=== PATIENT | female | born 1965 | race Two or more races ===

== ENCOUNTER 2018-02-09 09:13 | Emergency (ER) | payer SELFPAY ==
--- NOTE | 2018-02-09 09:40 | ER Document Report ---
ED Medical Screen (RME) - General Chief Complaint: Sore Throat Stated Complaint: SORE THROAT Time Seen by Provider: 02/09/18 09:37 Mode of Arrival: Ambulatory Information source: Patient TRAVEL OUTSIDE OF THE [place] IN LAST 30 DAYS: No - HPI Patient complains to provider of: dysphagia Onset: This morning - pt. sent here from with possible abscess in neck. Has painful swallowing - Related Data Allergies/Adverse Reactions: No Known Allergies Allergy (Verified 02/09/18 09:14) Physical Exam - Vital signs Vitals: Temp Pulse Resp BP Pulse Ox 99.5 F 88 18 153/89 H 98 02/09/18 09:24 02/09/18 09:24 02/09/18 09:24 02/09/18 09:24 02/09/18 09:24 Course - Vital Signs Vital signs: Temp Pulse Resp BP Pulse Ox 99.5 F 88 18 153/89 H 98 02/09/18 09:24 02/09/18 09:24 02/09/18 09:24 02/09/18 09:24 02/09/18 09:24
[2018-02-09] MEDS ORDERED: HYDROCODONE/ACETAMINOPHEN 5-325 MG TABLET PO ONE (09:42)
[2018-02-09] MEDS ORDERED: DEXAMETHASONE SOD PHOS INJ 10 MG/1 ML VIAL IV ONE (10:19)
[2018-02-09] MEDS ORDERED: AMPICILLIN SOD/SULBACTAM 3 GM VIAL IV ONE (10:20)
[2018-02-09] MEDS ORDERED: MORPHINE SULFATE 10 MG/ML INJ IV ONE ×2 (10:21→12:55)
--- NOTE | 2018-02-09 10:22 | ER Document Report ---
ED ENT - General Chief Complaint: Sore Throat Stated Complaint: SORE THROAT Time Seen by Provider: 02/09/18 09:37 Mode of Arrival: Ambulatory Information source: Patient Notes: Patient presents complaining of sore throat for the past week that worsened over the past 2 days. Patient states that her voice is muffled. Patient has been able to swallow liquids without difficulty. TRAVEL OUTSIDE OF THE [place] IN LAST 30 DAYS: No - HPI Onset: Last week Onset/Duration: Worse Pain Level: 5 Location of pain: Throat Associated symptoms: Sore throat. denies: Stiff neck Similar symptoms previously: No Recently seen / treated by doctor: No - Related Data Allergies/Adverse Reactions: No Known Allergies Allergy (Verified 02/09/18 09:40) Past Medical History - General Information source: Patient - Social History Smoking Status: Never Smoker Chew tobacco use (# tins/day): No Frequency of alcohol use: Occasional Drug Abuse: None Occupation: account resolution specialist Lives with: Spouse/Significant other Family History: Reviewed & Not Pertinent Patient has suicidal ideation: No Patient has homicidal ideation: No - Past Medical History Cardiac Medical History: Reports: Hx Hypercholesterolemia Endocrine Medical History: Reports: Hx Diabetes Mellitus Type 2 Renal/ Medical History: Denies: Hx Peritoneal Dialysis Past Surgical History: Reports: Other - Nasal surgery Review of Systems - Review of Systems Constitutional: No symptoms reported EENT: Throat pain, Throat swelling. denies: Difficulty swallowing Cardiovascular: No symptoms reported Respiratory: No symptoms reported. denies: Cough, Short of breath Gastrointestinal: No symptoms reported. denies: Nausea, Vomiting Genitourinary: No symptoms reported Female Genitourinary: No symptoms reported Musculoskeletal: No symptoms reported Skin: No symptoms reported Hematologic/Lymphatic: No symptoms reported Neurological/Psychological: No symptoms reported Physical Exam - Vital signs Vitals: Temp Pulse Resp BP Pulse Ox 99.5 F 88 18 153/89 H 98 02/09/18 09:24 02/09/18 09:24 02/09/18 09:24 02/09/18 09:24 02/09/18 09:24 - General General appearance: Appears well, Alert In distress: None - HEENT Head: Normocephalic, Atraumatic Eyes: Normal Ears: Normal External canal: Normal Nasal: Normal Mouth/Lips: Normal Mucous membranes: Normal Pharynx: Erythema, Peritonsillar abscess - right Neck: Lymphadenopathy Notes: Voice slightly muffled, patient able to manage oral secretions - Respiratory Respiratory status: No respiratory distress Chest status: Nontender Breath sounds: Normal. No: Rales, Rhonchi, Stridor, Wheezing Chest palpation: Normal - Cardiovascular Rhythm: Regular Heart sounds: S1 appreciated, S2 appreciated Murmur: No - Back Back: Normal, Nontender - Extremities General upper extremity: Normal inspection, Normal ROM General lower extremity: Normal inspection, Normal ROM - Neurological Neuro grossly intact: Yes Cognition: Normal Christiane Coma Scale Eye Opening: Spontaneous Hitchcock Coma Scale Verbal: Oriented Christiane Coma Scale Motor: Obeys Commands Hitchcock Coma Scale Total: 15 - Psychological Associated symptoms: Normal affect, Normal mood - Skin Skin Temperature: Warm Skin Moisture: Dry Skin Color: Normal Course - Re-evaluation Re-evalutation: 02/09/18 10:53 Patient states that she had a rapid strep test performed at the urgent care and it was negative and she is refusing to have this test performed here today. 02/09/18 12:03 Reviewed results of patient's CT scan. Call placed for consultation with Dr. Granger, awaiting return call. Consulted with Dr. Ortiz regarding patient's liver function tests abnormalities. Recommends outpatient follow-up with primary doctor for further evaluation. 02/09/18 12:40 Spoke with automatic beading lathe operator as we have yet to hear back from Dr. Granger, automatic beading lathe operator has paged him directly to her line. 02/09/18 12:55 Patient updated regarding results as well as pending consultation with ENT. Patient is requesting additional pain medication as well as IV fluids. 02/09/18 13:23 Straight Ruling Machine Operator is still awaiting return phone call. Patient stable at this time. 02/09/18 13:[address] Granger who advises having pt present directly to office for evaluation. - Vital Signs Vital signs: Temp Pulse Resp BP Pulse Ox 98.8 F 86 18 141/74 H 96 02/09/18 14:32 02/09/18 14:32 02/09/18 14:32 02/09/18 14:32 02/09/18 14:32 - Laboratory Result Diagrams: 02/09/18 10:00 02/09/18 10:00 Laboratory results interpreted by me: 02/09/18 02/09/18 10:00 10:00 WBC 17.5 H Hgb 11.4 L MCV 72 L MCH 22.5 L MCHC 31.4 L RDW 18.5 H Seg Neutrophils % 80.2 H Lymphocytes % 10.8 L Absolute Neutrophils 14.0 H Sodium 145.5 H Carbon Dioxide 32 H Glucose 206 H AST 84 H ALT 257 H Alkaline Phosphatase 202 H Total Protein 8.6 H Labs- Entire Visit 02/09/18 02/09/18 02/09/18 10:00 10:00 10:00 WBC 17.5 H RBC 5.07 Hgb 11.4 L Hct 36.3 MCV 72 L MCH 22.5 L MCHC 31.4 L RDW 18.5 H Plt Count 316 Seg Neutrophils % 80.2 H Lymphocytes % 10.8 L Monocytes % 6.9 Eosinophils % 1.6 Basophils % 0.5 Absolute Neutrophils 14.0 H Absolute Lymphocytes 1.9 Absolute Monocytes 1.2 Absolute Eosinophils 0.3 Absolute Basophils 0.1 Sodium 145.5 H Potassium 3.6 Chloride 102 Carbon Dioxide 32 H Anion Gap 12 BUN 14 Creatinine 0.59 Est GFR ( Amer) > 60 Est GFR (Non-Af Amer) > 60 Glucose 206 H Calcium 9.4 Total Bilirubin 0.3 Direct Bilirubin 0.3 Neonat Total Bilirubin Not Reportable Neonat Direct Bilirubin Not Reportable Neonat Indirect Bili Not Reportable AST 84 H ALT 257 H Alkaline Phosphatase 202 H Total Protein 8.6 H Albumin 4.3 Lipase Monotest NEGATIVE 02/09/18 10:00 WBC RBC Hgb Hct MCV MCH MCHC RDW Plt Count Seg Neutrophils % Lymphocytes % Monocytes % Eosinophils % Basophils % Absolute Neutrophils Absolute Lymphocytes Absolute Monocytes Absolute Eosinophils Absolute Basophils Sodium Potassium Chloride Carbon Dioxide Anion Gap BUN Creatinine Est GFR ( Amer) Est GFR (Non-Af Amer) Glucose Calcium Total Bilirubin Direct Bilirubin Neonat Total Bilirubin Neonat Direct Bilirubin Neonat Indirect Bili AST ALT Alkaline Phosphatase Total Protein Albumin Lipase 172.5 Monotest - Diagnostic Test Radiology reviewed: Reports reviewed Discharge - Discharge Clinical Impression: Peritonsillar abscess, Abnormal liver function test Condition: Stable Disposition: HOME, SELF-CARE Instructions: Nelli-Tonsillar Abscess ([facility]) Additional Instructions: Return immediately for any new or worsening symptoms Followup directly with Dr Granger in his office, he will see you today after you leave the ER. Forms: Return to Work Referrals: GIOVANA GRANGER DO [ASSOCIATE] - 02/09/18
[2018-02-09 10:30] LABS: ABSOLUTE BASOPHILS # (AUTO) 0.1 10^3/uL (0.0-0.2); ABSOLUTE EOSINOPHILS # (AUTO) 0.3 10^3/uL (0.0-0.6); ABSOLUTE LYMPHOCYTES (AUTO) 1.9 10^3/uL (0.5-4.7); ABSOLUTE MONOCYTES (AUTO) 1.2 10^3/uL (0.1-1.4); BASOPHILS % (AUTO) 0.5 % (0-2); EOSINOPHILS % (AUTO) 1.6 % (0-6); HEMATOCRIT 36.3 % (36.0-47.0); HEMOGLOBIN 11.4 g/dL (12.0-15.5); LYMPHOCYTES % (AUTO) 10.8 % (13-45); MEAN CORPUSCULAR HEMOGLOBIN 22.5 pg (27.0-33.4); MEAN CORPUSCULAR HGB CONC 31.4 g/dL (32.0-36.0); MEAN CORPUSCULAR VOLUME 72 fl (80-97); MONOCYTES % (AUTO) 6.9 % (3-13); PLATELET COUNT 316 10^3/uL (150-450); RED BLOOD COUNT 5.07 10^6/uL (3.72-5.28); RED CELL DISTRIBUTION WIDTH 18.5 % (11.5-14.0); SEGMENTED NEUTROPHILS % (AUTO) 80.2 % (42-78); TOTAL CELLS COUNTED % (AUTO) 100 %; WHITE BLOOD COUNT 17.5 10^3/uL (4.0-10.5)
[2018-02-09 10:49] LABS: ALANINE AMINOTRANSFERASE 257 U/L (9-52); ALBUMIN 4.3 g/dL (3.5-5.0); ALKALINE PHOSPHATASE 202 U/L (38-126); ANION GAP 12 (5-19); ASPARTATE AMINO TRANSFERASE 84 U/L (14-36); BILIRUBIN,DIRECT 0.3 mg/dL (0.0-0.4); BILIRUBIN,TOTAL 0.3 mg/dL (0.2-1.3); BLOOD UREA NITROGEN 14 mg/dL (7-20); CALCIUM 9.4 mg/dL (8.4-10.2); CARBON DIOXIDE 32 mmol/L (22-30); CHLORIDE 102 mmol/L (98-107); GLUCOSE 206 mg/dL (75-110); POTASSIUM 3.6 mmol/L (3.6-5.0); SODIUM 145.5 mmol/L (137-145); TOTAL PROTEIN 8.6 g/dL (6.3-8.2)
[2018-02-09] MEDS ORDERED: NORMAL SALINE 1000 ML 1,000 ML IV ONE ×2 (10:52→12:55)
--- NOTE | 2018-02-09 11:55 | RADIOLOGY REPORT (SQ) ---
EXAM DESCRIPTION: CT SOFT TISSUE NECK WITH COMPLETED DATE/TIME: 02/09/2018 11:35 am REASON FOR STUDY: dysphagia COMPARISON: None. TECHNIQUE: Post IV contrasted scanning from skull base through lung apices with review of bone, soft tissue and lung windows. Reconstructed coronal and sagittal MPR images reviewed. All images stored on PACS. All CT scanners at this facility use dose modulation, iterative reconstruction, and/or weight based d osing when appropriate to reduce radiation dose to as low as reasonably achievable (ALARA). [facility]: Dose Right [facility]: CareDose [facility]: Dose Right [facility]: Teradose 4D [facility]: ITN CONTRAST TYPE AND DOSE: contrast/concentration: Isovue 350.00 mg/ml; Total Contrast Delivered: 75.0 ml; Total Saline Delivered: 55.0 ml RENAL FUNCTION: GFR > 60. RADIATION DOSE: CT Rad equipment meets quality standard of care and radiation dose reduction techniq ues were employed. CTDIvol: 9.6 mGy. DLP: 307 mGy-cm. . LIMITATIONS: None. FINDINGS: SKULL BASE: Intact. MAJOR SALIVARY GLANDS: No solid or cystic masses. No inflammatory changes. LYMPHADENOPATHY: No adenopathy. MUCOSAL MASSES OR ASYMMETRY: Heterogeneous lesion right palatini tonsillar pillar measuring about 2.1 cm. This results in occlusion of the nasopharynx. LARYNX/CORDS: No abnormal findings. VASCULAR STRUCTURES: The major vessels are patent. LUNG APICES: Clear. BONES: Intact. THYROID: Normal size. No masses. PARANASAL SINUSES: Clear. OTHER: No other significant finding. IMPRESSION: Right palatine tonsillar abscess occluding the nasopharynx. TECHNICAL DOCUMENTATION: JOB ID: [id number] Quality ID # [id number]: Final reports with documentation of one or more dose reduction techniques (e.g., Au tomated exposure control, adjustment of the mA and/or kV according to patient size, use of iterative reconstruction technique) 2010 [employer]- All Rights Reserved Reading location - IP/workstation name: [email or web address]
[2018-02-09 12:29] LABS: LIPASE 172.5 U/L (23-300)
[2018-02-09 14:33] VITALS: BP 141/74
== END 2018-02-09 14:34 | disposition home or self-care (01) ==
LOC: ER 09:13
DX: J36 Peritonsillar abscess (principal); E11.9 Type 2 diabetes mellitus without complications; R79.89 Other specified abnormal findings of blood chemistry
CPT/HCPCS: 96376; 99284; 96361; 96375; 96365; 36415; 87070; 83690; 85025; 87077; 86308; 80053; 70491; J0295; J2270; J7030; J1100

== ENCOUNTER 2018-05-13 22:13 | Emergency (ER) | payer OTHER ==
[2018-05-14] MEDS ORDERED: TRAMADOL HCL 50 MG TABLET PO ONE (01:42)
--- NOTE | 2018-05-14 02:17 | RADIOLOGY REPORT (SQ) ---
EXAM DESCRIPTION: XR KNEE 4 OR MORE VIEWS COMPLETED DATE/TME: 05/14/2018 01:41 CLINICAL HISTORY: 52 years, Female, pain COMPARISON: None. NUMBER OF VIEWS: 4 TECHNIQUE: 4 views of the right knee LIMITATIONS: None. FINDINGS: Osteopenia. Negative for acute fracture or dislocation. Soft tissues are unremarkable IMPRESSION: No acute osseous abnormality. Osteopenia 2010 [facility] [employer]- All Rights Reserved
--- NOTE | 2018-05-14 03:45 | ER Document Report ---
ED General - General TRAVEL OUTSIDE OF THE [place] IN LAST 30 DAYS: No - General Chief Complaint: Leg Swelling Stated Complaint: RIGHT LEG SWELLING Time Seen by Provider: 05/14/18 00:50 Notes: Patient is a 52-year-old female presents with complaint of pain and swelling in her left leg for approximately a week. She says that whenever she twists or turns it or bears weight on it hurts. Is mainly in her knee and then a little bit up into her thigh. No weakness or numbness into the feet or toes. She has had previous surgery on her right knee. She said that surgery is about 30 years ago and was a scope in the knee. She denies any fevers. No infections. No other complaints at this time. No history of DVT or PE. (MELIZA IRIZARRY) - Related Data Allergies/Adverse Reactions: No Known Allergies Allergy (Verified 02/09/18 09:40) Past Medical History - Social History Smoking Status: Never Smoker Frequency of alcohol use: None Drug Abuse: None Family History: Reviewed & Not Pertinent Patient has suicidal ideation: No Patient has homicidal ideation: No - Past Medical History Cardiac Medical History: Reports: Hx Hypercholesterolemia Endocrine Medical History: Reports: Hx Diabetes Mellitus Type 2 Renal/ Medical History: Denies: Hx Peritoneal Dialysis Past Surgical History: Reports: Other - Nasal surgery Review of Systems - Review of Systems Notes: My Normal Review Basic REVIEW OF SYSTEMS: CONSTITUTIONAL : Denies fever, chills, or sweats. Denies recent illness. MUSCULOSKELETAL: Swelling to the right knee. SKIN: Denies rash or skin lesions. NEUROLOGICAL: Denies sensory or motor loss. ALL OTHER SYSTEMS REVIEWED AND NEGATIVE. (MELIZA IRIZARRY) Physical Exam - Vital signs Vitals: Temp Pulse Resp BP Pulse Ox 98.6 F 79 16 138/73 H 96 05/13/18 22:41 05/13/18 22:41 05/13/18 22:41 05/13/18 22:41 05/13/18 22:41 - Notes Notes: General Appearance: Well nourished, alert, cooperative, no acute distress, mild obvious discomfort. Vitals: reviewed, See vital signs table. Eyes: PERRL, EOMI, Conjuctiva clear Extremities: strength 5/5 in all extremities, good pulses in all extremities, sight swelling on th medial asect of the knee that extends about a third of the way up the thigh on the medial aspect. Knee as good passive range of motion without stiffness. Very faint pinkness of he skin consistent with inflammation. No significant redness or warmth to suggest infection. Skin: warm, dry, appropriate color, no rash Neuro: speech clear, oriented x 3, normal affect, responds appropriately to questions. (MELIZA IRIZARRY) Course - Re-evaluation Re-evalutation: 05/14/18 05:24 Reevaluate the patient. She still complaining some pain in her knee even though appear to be in any extremis. I did reevaluate the knee. Still has some mild swelling. There is no significant redness. No warmth. Passive put her a through good range of motion without any difficulty. We will continue to wait for venous Doppler ultrasound. X-ray shows no evidence of stress fracture. 05/14/18 06:28 Patient is pending ultrasound Doppler of her leg. I suspect this most likely will be negative. If negative and I suspect the swelling and pain is extremity from the knee itself. She probably reinjured her knee. She has no signs of infection on exam. Knee has good range of motion. I will give her crutches and provide her with a referral to orthopedics. Patient to return to ER if she has increasing swelling, redness to the knee, fevers, or if she feels unwell. Dictation of this chart was performed using voice recognition software; therefore, there may be some unintended grammatical errors. (MELIZA IRIZARRY) 05/14/18 09:00 Ultrasound returned negative. This was relayed to the patient. Patient inquiring about ways to help with swelling recommend ice and elevation patient also inquired about risk of flying explained to the patient to moves frequently and to take possibly baby aspirin feel like to decrease her chances of forming DVT SVT. Patient otherwise stable for discharge home (RAJEEV MCINTOSH) - Vital Signs Vital signs: Temp Pulse Resp BP Pulse Ox 98.1 F 78 18 125/74 99 05/14/18 03:25 05/14/18 03:25 05/14/18 03:25 05/14/18 03:25 05/14/18 03:25 Discharge - Discharge Clinical Impression: Leg pain Qualifiers: Laterality: right Qualified Code(s): M79.604 - Pain in right leg Knee pain, right Qualifiers: Chronicity: acute Qualified Code(s): M25.561 - Pain in right knee Additional Instructions: Please use the crutches to help keep weight off your right knee until you are no longer having pain. Please follow up with the orthopedist, Dr. longo for reevaluation. Please be aware that [place] does have Tylenol (acetaminophen) in it. Please make sure you do not take more than 4000 mg of acetaminophen a day. Do not drive or care for children after you have taken this medication they will make you sleepy and sometimes impair judgment. Return to the ER immediately if you develop increasing swelling, redness spreading from the knee , fevers, or significant stiffness in the knee. Referrals: GIOVANA GRANGER, DO [Primary Care Provider] - Follow up as needed
[2018-05-14] MEDS ORDERED: HYDROCODONE/ACETAMINOPHEN 5-325 MG TABLET PO ONE (04:39)
[2018-05-14] MEDS ORDERED: HYDROCODONE/ACETAMINOPHEN 5-325 MG (6 TAB/ER DISP) PO PRN (06:24)
[2018-05-14 09:29] VITALS: BP 135/77
--- NOTE | 2018-05-14 09:43 | RADIOLOGY REPORT (SQ) ---
EXAM DESCRIPTION: VENOUS UNILATERAL LOWER COMPLETED DATE/TIME: 05/14/2018 8:59 am REASON FOR STUDY: right leg COMPARISON: None. TECHNIQUE: Dynamic and static thakkar scale and color images acquired of the right leg venous system. S elected spectral images acquired with additional compression and augmentation maneuvers. The contrala teral common femoral vein and saphenofemoral junction were also imaged. Images stored on PACS. LIMITATIONS: None. FINDINGS: RIGHT COMMON FEMORAL: Normal phasicity, compression and augmentation. No visualized echogenic material on g ray scale. No defects on color images. FEMORAL: Normal compression and augmentation. No visualized echogenic material on thakkar scale. No defe cts on color images. POPLITEAL: Normal compression, augmentation. No visualized echogenic material on thakkar scale. No defec ts on color images. PERONEAL AND POSTERIOR TIBIAL VEINS: Normal compression, augmentation. No visualized echogenic materi al on thakkar scale. No defects on color images. GSV and SSV: Normal compression, augmentation. No visualized echogenic material on thakkar scale. No def ects on color images. ANY DEEP VENOUS INSUFFICIENCY: Not evaluated. ANY EVIDENCE OF POPLITEAL CYST: No. OTHER: No other significant finding. LEFT COMMON FEMORAL VEIN AND SAPHENOFEMORAL JUNCTION: Normal phasicity, compression and augmentation. No visualized echogenic material on thakkar scale. No de fects on color images. IMPRESSION: NO EVIDENCE OF DVT OR SVT IN THE RIGHT LEG. TECHNICAL DOCUMENTATION: JOB ID: [id number] [employer]- All Rights Reserved Reading location - IP/workstation name: [email or web address]
== END 2018-05-14 09:25 | disposition home or self-care (01) ==
LOC: ER 22:13
DX: M79.604 Pain in right leg (principal); M25.561 Pain in right knee; M79.89 Other specified soft tissue disorders; E78.00 Pure hypercholesterolemia, unspecified; E11.9 Type 2 diabetes mellitus without complications
CPT/HCPCS: 93971; 99284

== ENCOUNTER → 2018-08-28 | Outpatient (CLI) | payer BC, OTHER ==
--- NOTE | 2018-08-28 10:01 | RADIOLOGY REPORT (SQ) ---
EXAM DESCRIPTION: MRI RT LOWER JOINT WITHOUT COMPLETED DATE/TIME: 08/28/2018 8:33 am REASON FOR STUDY: PAIN IN RIGHT KNEE (M25.561) M25.561 PAIN IN RIGHT KNEE COMPARISON: None. TECHNIQUE: Rightknee images acquired and stored on PACS. Multiplanar images include fat sensitive s equences as T1, water sensitive sequences as FST2 or STIR, cartilage sensitive sequences as FSPD, and gradient echo sequences. LIMITATIONS: None. FINDINGS: JOINT AND BURSAE: No effusion. BONE CORTEX AND MARROW: No alteration of signal to suggest marrow replacement. No worrisome bone lesi ons. No occult fracture. ACL: Intact. No degeneration or ganglion cyst. PCL: Intact. MCL: Intact. No periligamentous edema or fluid. LCL: Intact. No periligamentous edema or fluid. MEDIAL MENISCUS: Increased signal posterior horn extending to the articular surface in the horizontal plane. LATERAL MENISCUS: No tears. No abnormal signal. MEDIAL COMPARTMENT: Cartilage preserved. No bone bruises or reactive marrow edema. No osteophytes. LATERAL COMPARTMENT: Cartilage preserved. No bone bruises or reactive marrow edema. No osteophytes. PATELLA: Lateral tilt. Shallow trochlea. TTTG approximately 20 mm. Heterogeneous signal in the patterson llar cartilage. No subchondral edema. EXTENSOR MECHANISM: Intact. Quadriceps and patella tendons normal. SOFT TISSUES: Adjacent muscles and subcutaneous tissues normal. Normal flow void in popliteal artery and vein. OTHER: No other significant finding. IMPRESSION: 1. Horizontal tear posterior horn medial meniscus. 2. Patellofemoral instability. Mild patellar chondromalacia. TECHNICAL DOCUMENTATION: JOB ID: [id number] [employer]- All Rights Reserved Reading location - IP/workstation name: [email or web address]
== END ==
LOC: RAD 08-22 10:49
PROVIDERS: ATTEND Physician Assistant
DX: M25.561 Pain in right knee (principal)

== ENCOUNTER → 2020-06-17 | Outpatient (CLI) | payer BC | LOC: WI 14:34 | PROVIDERS: ATTEND Family Medicine | DX: Z12.31 Encounter for screening mammogram for malignant neoplasm of breast (principal) | CPT/HCPCS: 77063; 77067 ==